=== PATIENT | female | born 1980 | race Caucasian/White ===

== ENCOUNTER → 2016-07-28 | Outpatient (REF) | payer OTHER | LOC: M SFHCWAGY 09:19 | PROVIDERS: ATTEND Nurse Practitioner Women's Health | DX: Z12.4 Encounter for screening for malignant neoplasm of cervix (principal) ==

== ENCOUNTER 2016-11-15 08:46 | Emergency (ER) | payer OTHER ==
[~2016-11-15] VITALS: Ht 162.6 cm; Wt 97.5 kg
[2016-11-15 10:01] LABS: BASO % 0.3 % (0.0-1.0); EOS % 0.5 % (0.0-3.0); LARGE UNSTAINED CELL # 0.1 K/mm3 (0.0-0.4); LARGE UNSTAINED CELL % 1.6 % (0.0-4.0); LYMPH # 1.2 K/mm3 (1.5-4.5); LYMPH % 17.5 % (24.0-44.0); MEAN CORPUSCULAR HEMOGLOBIN 31.6 pg (27.0-33.0); MEAN CORPUSCULAR HGB CONC 34.3 g/dl (32.0-36.5); MEAN CORPUSCULAR VOLUME 92.2 fl (80.0-96.0); MONO # 0.4 K/mm3 (0.0-0.8); MONO % 5.8 % (0.0-5.0); NEUTROPHILS # 4.7 K/mm3 (1.8-7.7); NEUTROPHILS % 74.3 % (36.0-66.0); PLATELET COUNT, AUTOMATED 260 k/mm3 (150-450); RED CELL DISTRIBUTION WIDTH 12.6 % (11.5-14.5); WHITE BLOOD COUNT 6.4 K/mm3 (4.0-10.0)
--- NOTE | 2016-11-15 11:38 | REP ---
Obstetric sonography: History: Vaginal bleeding. First trimester. Findings: Transabdominal and transvaginal scanning are performed. Uterine dimensions are 9.0 x 4.7 x 5.1 cm. Endometrial echo is 10 mm thick. No intrauterine gestation is seen. No free fluid is noted in the cul-de-sac. No focal uterine mass is observed. Normal ovaries are seen bilaterally. Right ovary dimensions are 2.5 x 1.5 x 2.3 cm. Left ovary measures 2.8 x 1.4 x 2.7 cm. Resistive indices are normal at 0.53 in each ovary by Doppler. There is a Nabothian cyst in the cervix. Impression: Nonspecific sonographic findings: No intrauterine gestation seen. No free fluid or adnexal mass noted. Clinical and possibly sonographic followup suggested. Signed by Dada King MD 11/15/2016 12:59 P
[2016-11-15 12:31] VITALS: BP 128/79
== END 2016-11-15 12:37 | disposition home or self-care (01) ==
LOC: M ED 09:22
DX: N93.9 Abnormal uterine and vaginal bleeding, unspecified (principal)

== ENCOUNTER 2017-05-01 11:29 | Emergency (ER) | payer OTHER ==
[~2017-05-01] VITALS: Ht 162.6 cm; Wt 95.5 kg
[2017-05-01 11:29] VITALS: BP 129/83
[2017-05-01] MEDS ORDERED: LATU20TA PO (11:41)
[2017-05-01] MEDS ORDERED: HYDR200T3 PO (11:41)
[2017-05-01] MEDS ORDERED: PRED10TA2 PO (11:41)
[2017-05-01] MEDS ORDERED: IBUP200T45 PO (11:41)
[2017-05-01] MEDS ORDERED: ROBA500T PO (12:19)
[2017-05-01] MEDS ORDERED: IBUP-1022 PO (12:19)
[2017-05-01] MEDS ORDERED: METHOCARBAMOL 500 MG TAB PO ONE (12:30)
[2017-05-01] MEDS ORDERED: IBUPROFEN 600 MG TAB PO ONE (12:30)
== END 2017-05-01 12:27 | disposition home or self-care (01) ==
LOC: M ED 11:29
DX: M54.5 Low back pain (principal); M79.7 Fibromyalgia

== ENCOUNTER → 2017-08-19 | Outpatient (CLI) | payer OTHER | LOC: M SLEEP 19:06 | DX: R06.83 Snoring (principal) ==

== ENCOUNTER → 2018-01-17 | Outpatient (REF) | payer OTHER ==
[2018-01-18 09:15] LABS: HEPATITIS C VIRUS ABY INDEX 0.1 INDEX (<0.8)
== END ==
LOC: M LAB REF 12:54
DX: L81.8 Other specified disorders of pigmentation (principal)

== ENCOUNTER → 2018-12-02 | Outpatient (CLI) | payer OTHER ==
[~2018-12-02] MED LIST: HYDR200T3 PO; IBUP-1022 PO; IBUP200T45 PO; LATU20TA PO; PRED10TA2 PO; ROBA500T PO
[2018-12-02 14:39] LABS: BASO % 0.9 % (0.0-1.0); EOS % 0.9 % (0.0-3.0); HEMATOCRIT 36.8 % (36.0-47.0); LYMPH # 1.3 10^3/uL (1.5-4.5); LYMPH % 28.8 % (24.0-44.0); MEAN CORPUSCULAR HEMOGLOBIN 29.9 pg (27.0-33.0); MEAN CORPUSCULAR HGB CONC 32.6 g/dl (32.0-36.5); MEAN CORPUSCULAR VOLUME 91.8 fl (80.0-96.0); MONO # 0.4 10^3/uL (0.0-0.8); MONO % 9.2 % (0.0-5.0); NEUTROPHILS # 2.7 10^3/uL (1.8-7.7); PLATELET COUNT, AUTOMATED 262 10^3/uL (150-450); RED BLOOD COUNT 4.01 10^6/uL (4.00-5.40); WHITE BLOOD COUNT 4.6 10^3/uL (4.0-10.0)
[2018-12-02 15:25] LABS: ALBUMIN 3.4 GM/DL (3.2-5.2); ALT/SGPT 22 U/L (12-78); BILIRUBIN,TOTAL 0.3 MG/DL (0.2-1.0); BLOOD UREA NITROGEN 11 MG/DL (7-18); C REACTIVE PROTEIN QUANTITATIV 0.32 MG/DL (0.00-0.30); CALCIUM LEVEL 8.8 MG/DL (8.5-10.1); CARBON DIOXIDE LEVEL 27 MEQ/L (21-32); CHLORIDE LEVEL 107 MEQ/L (98-107); CHOLESTEROL LEVEL 194 MG/DL (<200); CHOLESTEROL RISK RATIO 3.344 (<5); CREATININE FOR GFR 0.57 MG/DL (0.55-1.30); FREE T4 0.93 NG/DL (0.76-1.46); GLOMERULAR FILTRATION RATE > 60.0 (>60); GLUCOSE, FASTING 81 MG/DL (70-100); HDL CHOLESTEROL 58 MG/DL (>40); IRON (FE) 75 UG/DL (50-170); LDL CHOLESTEROL 122 MG/DL (<100); NON-HDL-C 136 MG/DL; POTASSIUM SERUM 4.5 MEQ/L (3.5-5.1); SODIUM LEVEL 140 MEQ/L (136-145); TOTAL IRON BINDING CAPACITY 250 UG/DL (250-450); TRIGLYCERIDES LEVEL 68 MG/DL (<150)
[2018-12-02 15:29] LABS: FREE T3 2.6 PG/ML (2.2-4.0)
[2018-12-04 11:14] LABS: THYROID PEROXIDASE ANTIBODY < 28.0 U/ML (<60.0); TOTAL 25(OH) VITAMIN D 29.2 NG/ML (30.0-100.0)
[2018-12-04 11:15] LABS: THYROGLOBULIN ANTIBODY 26.8 U/ML (<60.0)
[2018-12-08 09:02] LABS: ANTINUCLEAR ANTIBODIES DIRECT Negative (Negative); Lyme Disease IgG/IgM Antibodie <0.91 ISR (0.00-0.90); Lyme Disease IgM Ab Quantitati <0.80 index (0.00-0.79); T3 REVERSE 17.5 ng/dL (9.2-24.1)
== END ==
LOC: M WUC 10:00
PROVIDERS: ATTEND Nurse Practitioner Pediatrics
DX: R53.81 Other malaise (principal); F41.9 Anxiety disorder, unspecified; E66.3 Overweight

== ENCOUNTER → 2018-12-20 | Outpatient (REF) | payer OTHER ==
[2018-12-20 11:57] LABS: LUTEINIZING HORMONE 4.3 mIU/mL; PROGESTERONE 0.94 NG/ML
[2018-12-24 11:07] LABS: DEHYDROEPIANDROSTERONE UNCONJ 306 ng/dL (31-701); ESTROGENS TOTAL 81 pg/mL (.); TESTOSTERONE FREE (DIRECT) < 0.2 pg/mL (0.0-4.2)
== END ==
LOC: M LABDRAWC 11:11
PROVIDERS: ATTEND Nurse Practitioner Pediatrics
DX: F50.81 Binge eating disorder (principal); F41.9 Anxiety disorder, unspecified; R53.81 Other malaise; E66.3 Overweight

== ENCOUNTER → 2019-01-18 | Outpatient (CLI) | payer OTHER ==
[2019-01-24 00:09] LABS: HSV IgM TYPES 1&2 0.93 Ratio (0.00-0.90)
== END ==
LOC: M WUC 17:39
PROVIDERS: ATTEND Nurse Practitioner Pediatrics
DX: F50.81 Binge eating disorder (principal); F41.9 Anxiety disorder, unspecified; R53.81 Other malaise; E66.3 Overweight

== ENCOUNTER → 2019-01-29 | Outpatient (REF) | payer OTHER | LOC: M LABDRAWC 16:40 | PROVIDERS: ATTEND Nurse Practitioner Pediatrics | DX: R53.81 Other malaise (principal) ==

== ENCOUNTER → 2019-03-21 | Outpatient (REF) | payer OTHER ==
[2019-03-21 11:44] LABS: HEMATOCRIT 39.7 % (36.0-47.0); HEMOGLOBIN 13.3 g/dl (12.0-15.5)
[2019-03-21 12:13] LABS: HEMOGLOBIN A1c 5.3 %
[2019-03-21 12:20] LABS: ALBUMIN 3.9 GM/DL (3.2-5.2); PERCENT SATURATION 16.4 % (13.2-45.0); THYROID STIMULATING HORMONE 0.831 uIU/ML (0.358-3.740)
== END ==
LOC: M LABDRAWC 11:15
PROVIDERS: ATTEND Orthopaedic Surgery
DX: Z01.812 Encounter for preprocedural laboratory examination (principal); M62.81 Muscle weakness (generalized); M16.11 Unilateral primary osteoarthritis, right hip

== ENCOUNTER → 2019-11-09 | Outpatient (REF) | payer OTHER | LOC: M SFHCWAGY 17:45 | PROVIDERS: ATTEND Nurse Practitioner Women's Health | DX: Z12.4 Encounter for screening for malignant neoplasm of cervix (principal); R87.610 Atypical squamous cells of undetermined significance on cytologic smear of cervix (ASC-US) | CPT/HCPCS: 87624; G0123; G0463 ==

== ENCOUNTER → 2019-12-10 | Outpatient (REF) | payer OTHER | LOC: M SFHCWAGY 17:04 | PROVIDERS: ATTEND Nurse Practitioner Women's Health | DX: R87.810 Cervical high risk human papillomavirus (HPV) DNA test positive (principal); R87.610 Atypical squamous cells of undetermined significance on cytologic smear of cervix (ASC-US) ==

== ENCOUNTER → 2020-04-18 | Outpatient (REF) | payer OTHER ==
[2020-04-18 13:43] LABS: C REACTIVE PROTEIN QUANTITATIV < 0.30 MG/DL (0.00-0.30)
[2020-04-18 13:56] LABS: PROGESTERONE 1.53 NG/ML
[2020-04-21 13:07] LABS: ESTROGENS TOTAL 74 pg/mL (.); TESTOSTERONE FREE (DIRECT) 1.1 pg/mL (0.0-4.2)
== END ==
LOC: M LABDRAWC 11:22
PROVIDERS: ATTEND Nurse Practitioner Pediatrics
DX: F32.81 Premenstrual dysphoric disorder (principal); F50.81 Binge eating disorder; F41.9 Anxiety disorder, unspecified

== ENCOUNTER → 2020-08-22 | Outpatient (CLI) | payer OTHER ==
--- NOTE | 2020-08-22 10:18 | REP ---
INDICATION: LOW BACK PAIN COMPARISON: None. TECHNIQUE: AP, lateral, flexion/extension, bilateral oblique, and coned-down views. FINDINGS: Alignment and lordosis is maintained. The vertebral bodies including transverse process and spinous processes are intact and normal. There is no evidence for acute fracture / compression injury or subluxation. No evidence for spondylolysis or spondylolisthesis. Mild degenerative changes include endplate sclerosis with minimal disc space narrowing primarily L5-S1, L4-5. 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 <Electronically signed by Rashard Helms > 08/22/20 1014
--- NOTE | 2020-08-22 10:21 | REP ---
INDICATION: LOW BACK PAIN COMPARISON: None. TECHNIQUE: Single AP view of the pelvis. FINDINGS: Bilateral hip replacements appear relatively normal/stable. Osseous structures are intact. No acute fracture or dislocation. Surrounding soft tissues are normal. IMPRESSION: Relatively normal pelvic radiograph. <Electronically signed by Rashard Helms > 08/22/20 1015
== END ==
LOC: M WUC 08:23
PROVIDERS: ATTEND Physician Assistant
DX: M51.36 Other intervertebral disc degeneration, lumbar region (principal)

== ENCOUNTER → 2020-10-02 | Outpatient (REF) | payer OTHER ==
[2020-10-02 12:25] LABS: BASO % 0.5 % (0.0-1.0); EOS % 0.7 % (0.0-3.0); HEMATOCRIT 38.6 % (36.0-47.0); HEMOGLOBIN 12.9 g/dl (12.0-15.5); LYMPH # 1.2 10^3/uL (1.5-5.0); LYMPH % 20.2 % (24.0-44.0); MEAN CORPUSCULAR HEMOGLOBIN 31.6 pg (27.0-33.0); MEAN CORPUSCULAR HGB CONC 33.4 g/dl (32.0-36.5); MEAN CORPUSCULAR VOLUME 94.6 fl (80.0-96.0); MONO # 0.5 10^3/uL (0.0-0.8); NEUTROPHILS # 4.3 10^3/uL (1.5-8.5); NEUTROPHILS % 70.3 % (36.0-66.0); PLATELET COUNT, AUTOMATED 284 10^3/uL (150-450); RED BLOOD COUNT 4.08 10^6/uL (4.00-5.40); WHITE BLOOD COUNT 6.2 10^3/uL (4.0-10.0)
[2020-10-02 13:04] LABS: C REACTIVE PROTEIN QUANTITATIV < 0.30 MG/DL (0.00-0.30); FREE T3 2.8 PG/ML (2.2-4.0); FREE T4 0.96 NG/DL (0.76-1.46); IRON (FE) 69 UG/DL (50-170); THYROGLOBULIN ANTIBODY < 15.0 U/ML (<60.0); THYROID PEROXIDASE ANTIBODY < 28.0 U/ML (<60.0); TOTAL 25(OH) VITAMIN D 32.3 NG/ML (30.0-100.0); TOTAL IRON BINDING CAPACITY 256 UG/DL (250-450)
== END ==
LOC: M LABDRWAD 11:33
PROVIDERS: ATTEND Nurse Practitioner Pediatrics
DX: F41.9 Anxiety disorder, unspecified (principal); F50.81 Binge eating disorder; F32.81 Premenstrual dysphoric disorder

== ENCOUNTER → 2021-10-15 | Outpatient (REF) | payer OTHER ==
[~2021-10-15] MED LIST changes: -IBUP200T45 PO; +IBUP200T46 PO
[2021-10-15 12:49] LABS: FREE T4 0.87 NG/DL (0.76-1.46); THYROID STIMULATING HORMONE 1.43 uIU/ML (0.358-3.740)
[2021-10-15 12:52] LABS: CORTISOL AM 10.6 UG/DL (4.3-22.4)
[2021-10-15 12:54] LABS: ESTRADIOL 65.9 PG/ML; PROGESTERONE 9.1 NG/ML
[2021-10-15 12:55] LABS: FOLLICLE STIMULATING HORMONE 8.3 mIU/mL
== END ==
LOC: M LAB REF 11:14
PROVIDERS: ATTEND Obstetrics & Gynecology
DX: N95.1 Menopausal and female climacteric states (principal); Z79.899 Other long term (current) drug therapy

== ENCOUNTER → 2021-11-27 | Outpatient (REF) | payer OTHER ==
[2021-11-27 12:24] LABS: FREE T4 0.94 NG/DL (0.76-1.46); THYROID STIMULATING HORMONE 1.07 uIU/ML (0.358-3.740); TOTAL 25(OH) VITAMIN D 43.2 NG/ML (30.0-100.0)
[2021-11-27 12:26] LABS: ESTRADIOL 92.4 PG/ML; PROGESTERONE 0.72 NG/ML; THYROID PEROXIDASE ANTIBODY 42.9 U/ML (<60.0)
== END ==
LOC: M LABDRAWC 11:22
PROVIDERS: ATTEND Nurse Practitioner Pediatrics
DX: R53.83 Other fatigue (principal); F34.1 Dysthymic disorder

== ENCOUNTER → 2021-12-01 | Outpatient (REF) | payer OTHER ==
[2021-12-01 12:27] LABS: ESTRADIOL 78.6 PG/ML; FOLLICLE STIMULATING HORMONE 10.5 mIU/mL
== END ==
LOC: M LABDRAWC 11:13
PROVIDERS: ATTEND Obstetrics & Gynecology
DX: E34.9 Endocrine disorder, unspecified (principal); F52.0 Hypoactive sexual desire disorder; N95.1 Menopausal and female climacteric states

== ENCOUNTER → 2022-07-14 | Outpatient (REF) | payer OTHER ==
[2022-07-14 12:12] LABS: PERCENT SATURATION 34.5 % (13.2-45.0)
[2022-07-14 12:13] LABS: FERRITIN 69.1 NG/ML (7.3-270.7)
[2022-07-14 12:15] LABS: BASO % 0.5 % (0.0-1.0); EOS % 0.5 % (0.0-3.0); HEMATOCRIT 37.6 % (36.0-47.0); HEMOGLOBIN 12.5 g/dl (12.0-15.5); LYMPH # 1.2 10^3/uL (1.5-5.0); LYMPH % 21.1 % (24.0-44.0); MEAN CORPUSCULAR HEMOGLOBIN 31.9 pg (27.0-33.0); MEAN CORPUSCULAR HGB CONC 33.2 g/dl (32.0-36.5); MEAN CORPUSCULAR VOLUME 95.9 fl (80.0-96.0); MONO # 0.5 10^3/uL (0.0-0.8); MONO % 8.3 % (2.0-8.0); NEUTROPHILS % 69.3 % (36.0-66.0); PLATELET COUNT, AUTOMATED 257 10^3/uL (150-450); RED BLOOD COUNT 3.92 10^6/uL (4.00-5.40); WHITE BLOOD COUNT 5.8 10^3/uL (4.0-10.0)
[2022-07-15 23:10] LABS: TISSUE TRANSGLUTAMINASE IgA <2 U/mL (0-3); TISSUE TRANSGLUTAMINASE IgG <2 U/mL (0-5); UNITSIGA FOR GLIADIN IGA 7 units (0-19); UNITSIGG FOR GLIADIN IGG 3 units (0-19)
== END ==
LOC: M LABDRAWC 11:36
PROVIDERS: ATTEND Family Medicine
DX: K58.2 Mixed irritable bowel syndrome (principal); R53.83 Other fatigue

== ENCOUNTER → 2022-07-14 | Outpatient (REF) | payer OTHER ==
[2022-07-14 12:13] LABS: C REACTIVE PROTEIN QUANTITATIV < 0.40 MG/DL (<1.0); FREE T3 3.3 PG/ML (2.3-4.2); THYROID STIMULATING HORMONE 1.097 uIU/ML (0.55-4.78)
[2022-07-14 12:14] LABS: CHOLESTEROL LEVEL 198 MG/DL (<200); HDL CHOLESTEROL 56.5 MG/DL (>40); LDL CHOLESTEROL 125.7 MG/DL (<100); NON-HDL-C 142 MG/DL; TRIGLYCERIDES LEVEL 79 MG/DL (<150)
[2022-07-14 12:15] LABS: FREE T4 1.06 NG/DL (0.89-1.76)
[2022-07-14 12:17] LABS: THYROGLOBULIN ANTIBODY < 15.0 U/ML (<60.0); THYROID PEROXIDASE ANTIBODY < 28.0 U/ML (<60.0)
== END ==
LOC: M LABDRAWC 11:29
PROVIDERS: ATTEND Nurse Practitioner Pediatrics
DX: R53.83 Other fatigue (principal); F34.1 Dysthymic disorder

== ENCOUNTER → 2022-08-19 | Outpatient (REF) | payer OTHER | LOC: M LAB REF 09:43 | PROVIDERS: ATTEND Family Medicine | DX: R19.7 Diarrhea, unspecified (principal) ==

== ENCOUNTER → 2022-10-11 | Outpatient (REF) | payer OTHER ==
[2022-10-11 12:22] LABS: ESTRADIOL 82.9 PG/ML; FOLLICLE STIMULATING HORMONE 3.6 mIU/ML; LUTEINIZING HORMONE 4.1 mIU/ML
[2022-10-11 12:23] LABS: PROGESTERONE 5.03 NG/ML
[2022-10-13 17:10] LABS: ESTRONE SERUM 73 pg/mL (.); SEX HORMONE BINDING GLOBULIN 48.8 nmol/L (24.6-122.0); TESTOSTERONE FREE (DIRECT) 3.6 pg/mL (0.0-4.2)
== END ==
LOC: M LABDRWAD 11:17 → M LAB REF 11:17
PROVIDERS: ATTEND Obstetrics & Gynecology
DX: N95.1 Menopausal and female climacteric states (principal)

== ENCOUNTER → 2022-12-13 | Outpatient (REF) | payer OTHER ==
[~2022-12-13] MED LIST changes: -HYDR200T3 PO; +HYDR200T46 PO
[2022-12-13 11:24] LABS: FOLLICLE STIMULATING HORMONE 9.6 mIU/ML
[2022-12-13 11:25] LABS: ESTRADIOL 75.4 PG/ML; PROGESTERONE 0.89 NG/ML
[2022-12-15 19:06] LABS: TESTOSTERONE FREE (DIRECT) 4.2 pg/mL (0.0-4.2)
== END ==
LOC: M LABDRAWC 10:49
PROVIDERS: ATTEND Obstetrics & Gynecology
DX: N95.1 Menopausal and female climacteric states (principal); E34.9 Endocrine disorder, unspecified; F52.0 Hypoactive sexual desire disorder

== ENCOUNTER → 2023-02-02 | Outpatient (REF) | payer OTHER ==
[2023-02-02 13:18] LABS: FOLLICLE STIMULATING HORMONE 6.3 mIU/ML; LUTEINIZING HORMONE 4.6 mIU/ML; PROGESTERONE 13.7 NG/ML
[2023-02-03 12:12] LABS: TESTOSTERONE FREE (DIRECT) 2.9 pg/mL (0.0-4.2)
== END ==
LOC: M LABDRAWC 11:53
PROVIDERS: ATTEND Obstetrics & Gynecology
DX: N95.1 Menopausal and female climacteric states (principal); E34.9 Endocrine disorder, unspecified; F52.0 Hypoactive sexual desire disorder

== ENCOUNTER → 2023-05-25 | Outpatient (REF) | payer OTHER ==
[~2023-05-25] MED LIST changes: +NALT50TA4 PO; +VALA500T5 PO
[2023-05-25 12:21] LABS: ESTRADIOL 140.4 PG/ML; FOLLICLE STIMULATING HORMONE 7.5 mIU/ML
[2023-05-25 12:22] LABS: LUTEINIZING HORMONE 16.3 mIU/ML; PROGESTERONE 0.66 NG/ML
[2023-05-26 16:08] LABS: TESTOSTERONE FREE (DIRECT) 2.5 pg/mL (0.0-4.2)
== END ==
LOC: M LABDRAWC 11:03
PROVIDERS: ATTEND Obstetrics & Gynecology
DX: N95.1 Menopausal and female climacteric states (principal); E34.9 Endocrine disorder, unspecified; F52.0 Hypoactive sexual desire disorder

== ENCOUNTER → 2023-08-25 | Outpatient (CLI) | payer OTHER ==
[2023-08-25 14:48] LABS: FOLLICLE STIMULATING HORMONE 9.2 mIU/ML
[2023-08-25 14:49] LABS: ESTRADIOL 80.5 PG/ML
[2023-08-25 14:52] LABS: PROGESTERONE 0.63 NG/ML
[2023-08-26 08:47] LABS: LUTEINIZING HORMONE 3.5 mIU/ML
[2023-08-27 16:09] LABS: TESTOSTERONE FREE (DIRECT) 3.5 pg/mL (0.0-4.2)
== END ==
LOC: M WUC 08:51
PROVIDERS: ATTEND Obstetrics & Gynecology
DX: N95.1 Menopausal and female climacteric states (principal); E34.9 Endocrine disorder, unspecified; F52.0 Hypoactive sexual desire disorder

== ENCOUNTER → 2025-05-16 | Outpatient (CLI) | payer OTHER ==
[~2025-05-16] MED LIST changes: -IBUP-1022 PO; +IBUP600T42 PO
[2025-05-16 12:36] LABS: BASO # 0.0 10^3/uL (0.0-0.2); BASO % 0.7 % (0.0-1.0); EOS # 0.1 10^3/uL (0.0-0.5); EOS % 0.9 % (0.0-3.0); LYMPH # 1.4 10^3/uL (1.5-5.0); LYMPH % 26.3 % (24.0-44.0); MONO # 0.6 10^3/uL (0.0-0.8); MONO % 10.7 % (2.0-8.0); NEUTROPHILS # 3.3 10^3/uL (1.5-8.5); NEUTROPHILS % 61.2 % (36.0-66.0); PLATELET COUNT, AUTOMATED 245 10^3/uL (150-450)
[2025-05-16 13:20] LABS: ALT/SGPT 13 U/L (7.0-40); AST/SGOT 15 U/L (<34); CALCIUM LEVEL 8.6 MG/DL (8.5-10.1); CARBON DIOXIDE LEVEL 27 MMOL/L (20-31); CHLORIDE LEVEL 105 MMOL/L (98-107); CREATININE FOR GFR 0.61 MG/DL (0.55-1.30); FREE T4 1.19 NG/DL (0.89-1.76); GLOMERULAR FILTRATION RATE > 90.0 (>58); POTASSIUM SERUM 4.1 MMOL/L (3.5-5.1); SODIUM LEVEL 141 MMOL/L (136-145); TOTAL 25(OH) VITAMIN D 37.2 NG/ML (20.0-100.0)
[2025-05-16 13:23] LABS: VITAMIN B12 LEVEL 416 PG/ML (211-911)
[2025-05-21 22:07] LABS: TESTOSTERONE FREE (DIRECT) 6.0 pg/mL (0.1-6.4); TESTOSTERONE TOTAL FOR T&D 59.0 ng/dL (2-45)
== END ==
LOC: M WUC 09:20
PROVIDERS: ATTEND Family Medicine
DX: L65.9 Nonscarring hair loss, unspecified (principal); Z79.890 Hormone replacement therapy; N95.8 Other specified menopausal and perimenopausal disorders